=== PATIENT | male | born 1935 | race Caucasian/White ===

== ENCOUNTER 2018-10-27 10:29 | Emergency (ER) | payer MEDICARE, SELFPAY ==
[2018-10-27 10:32] VITALS: BP 163/79; PULSE 74; RESP 16; TEMP 36.6; O2SAT 98
--- NOTE | 2018-10-27 10:56 | DI.RAD_ITS ---
SYMPTOM/DIAGNOSIS: FALL LEFT WRIST: There is a comminuted interarticular fracture of the distal radius with mild displacement. There is minimal separation of the articular surface. There is evidence of an old ulnar styloid fracture. There is positive ulnar variance and degenerative changes between the ulna, lunate and triquetrum. No carpal fractures are seen. IMPRESSION: Comminuted interarticular fracture of the distal radius.
--- NOTE | 2018-10-27 10:56 | DI.RAD_ITS ---
SYMPTOM/DIAGNOSIS: FALL RIGHT KNEE: No fracture or hemarthrosis is seen. 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 IMPRESSION: Degenerative changes. No evidence of fracture.
--- NOTE | 2018-10-27 10:56 | DI.RAD_ITS ---
SYMPTOM/DIAGNOSIS: FALL LEFT FOREARM: Comparison is made with wrist films of the same day. Again noted is the distal radial fracture. No additional fractures are seen proximally in the radius or ulna. IMPRESSION: Distal radial fracture.
--- NOTE | 2018-10-27 10:56 | DI.CT_ITS ---
SYMPTOM/DIAGNOSIS: TRAUMA NONCONTRAST HEAD CT: There is a left frontal scalp soft tissue swelling. No skull fracture, intracranial hemorrhage seen. There is no evidence of mass or infarct. There is mild atrophy. The ventricles are normal in size. IMPRESSION: Left frontal scalp hematoma. No fracture or intracranial hemorrhage.
--- NOTE | 2018-10-27 11:10 | W.ED.GENAD ---
Discharge Plan Disposition Patient Disposition: HOME Condition: Stable Discharge Details Chief Complaint: Trauma Clinical Impression: Distal radius fracture, left, Hematoma of frontal scalp, Abrasion of scalp, Contusion of knee, right Primary Care Provider: [facility] ED Provider: Aldo Harper Discharge Instructions Instructions: Wrist Fracture in Adults (ED), Head Injury (ED), Contusion in Adults (ED), Hematoma (ED) Additional Instructions: You may continue to take [id number] pain medication as needed for discomfort. Also feel free to apply ice to reduce swelling. Ice can be applied on top of splinting and please do not remove splint until seen and evaluated by orthopedist. Due to possible navicular bone involvement to your fracture you should call your orthopedist first thing on Monday morning for arrangement of follow-up appointment and possible CT imaging as needed. Referrals: Primary Care Provider [Outside] (Follow-up with your primary care provider if you need a referral to local orthopedist when you return home) Medical Decision Making Patient presenting to the emergency department for chief complaint of trauma. Patient states just prior to coming to the emergency department he was helping his daughter load boxes into the vehicle when he was walking back to the house to get more boxes he tripped on a metal stake. This mechanical fall caused him to hit his head against the concrete, landed on his right knee, and also injured his left wrist due to attempting to brace for the fall. Patient states a mild headache but mostly is concerned about left wrist injury and states that that is the most painful area. Physical exam shows a hematoma and abrasion to the left forehead otherwise unremarkable neurological exam, significant pain and discomfort with palpation of the left distal radius and ulna with patient stating more pain to the radius. Patient has difficulty performing any range of motion of the wrist due to pain and discomfort. Distal to the site of injury patient has full sensation movement and cap refill along with radial pulse being intact. Patient has mild ecchymosis and abrasion to the right knee and pain to palpation of the patella otherwise unremarkable knee exam. Plan to perform radiological imaging of the head, left wrist and forearm, and right knee. Pending results patient only requesting acetaminophen for pain control Review of radiological imaging shows no acute findings on head and knee imaging but patient does have an acute comminuted intra-articular fracture of the distal radius. There is a slight lunacy noted and observed by radiologist on single view of the navicular but no obvious deformity or displacement. Given this patient was placed in a volar splint and Ortho-Glass along with Ash wrap was utilized to place the hand in resting position. Patient states that he would prefer to follow-up with his local orthopedist when he returns home for further treatment of his fracture. Did inform patient of the small lunacy seen through the navicular on single view and that he may need a CT imaging but I do not feel that this needs to be emergently performed in the emergency department. Patient and family state clear understanding of plan of care and need for follow-up with orthopedist for reevaluation. After discussion of diagnosis and plan of care patient and family have no further needs, questions, or concerns and states clear understanding to return to the emergency department for any worsening symptoms. HPI General Mode of arrival: ambulatory. Date/Time Provider Initiated Documentation: 10/27/18 10:35. Limitations to Documentation: no limitations. Information obtained by: patient, family and RN notes reviewed. History of Present Illness 82 year old M presents to the emergency department with the chief complaint of Fall with injury to head, left wrist, and right knee, described as moderate, with intensity rated at 10. and is localized to the head, right and upper extremity. Patient started experiencing this minute(s) (30) and it has been constant. Patient notes no other symptoms.. Patient did receive the following treatments prior to arrival, none Related Data Allergies Allergy/AdvReac Type Severity Reaction Status Date / Time No Known Allergies Allergy Unverified 10/27/18 10:36 General Stated Complaint: Trauma LAURA: 3 Review of Systems Constitutional Reports system reviewed and no additional complaints, except as docu and Denies headache(s) Eyes Reports system reviewed and no additional complaints, except as docu, Denies change in vision and Denies photophobia ENT Reports system reviewed and no additional complaints, except as docu, Denies abnormal hearing, Denies dental pain, Denies dizziness, Denies headache(s), Denies epistaxis, Denies nasal discharge and Denies neck pain Cardiovascular Reports system reviewed and no additional complaints, except as docu, Denies chest pain, Denies syncope and Denies palpitations Musculoskeletal Denies neck pain Integumentary/Breasts Reports bleeding lesions Neurologic Denies abnormal hearing, Denies dizziness, Denies syncope and Denies headache(s) Endocrine Denies palpitations PFS Social History Substance use type: does not use Do you feel safe at home: Yes Do you feel safe in your relationship?: Yes Exam Const General: cooperative, healthy appearing, comfortable and no acute distress [facility] Head: no palpable skull fracture, abrasion (with swelling ) left temporal 3 in, no Posada's sign, no lacerations, no raccoon eyes and No periorbital ecchymosis Ears: hearing grossly normal bilaterally General nose exam: external nose normal, no nasal discharge and no epistaxis Face and sinus: normal facial exam and face symmetric Mouth: oral mucosae normal, lip normal, tongue normal, oropharynx normal and moist mucous membranes Teeth and gingiva: dentition normal Throat: posterior oropharynx normal, tonsils normal and uvula midline Eyes General: appearance normal, both eyes and all related structures Pupils: PERRL EOM: EOM intact bilaterally Neck Neck: normal visual inspection, full ROM and no midline deformity Cardio Rate: regular rate Rhythm: regular rhythm Heart Sounds: S1 normal and S2 normal Pulses: radial pulses present Back/Spine/Pelvis Cervical Spine: normal cervical lordosis, cervical ROM normal, No cervical muscular tenderness, No pain with cervical ROM, No cervical spinal tenderness and No step off deformity Neuro General: alert, awake, gait normal, tone normal, moves all extremities and not confused Cranial Nerves: PERRL, EOM intact bilaterally, no nystagmus, tongue midline, hearing normal and able to elevate shoulders bilaterally Cognition: normal cognition Speech: speech normal Gait: normal gait Motor: muscle tone normal throughout Extrem Right upper extremity: wrist (and forearm ) Details: tenderness Location: of the distal radius, of the distal ulna and of the anatomic snuffbox, swelling (mild distal radial) and deformity Right lower extremity: normal capillary refill and knee Details: knee ligament exam normal, abrasion (with mild swelling) and ecchymosis (mild to patella) Left lower extremity: normal to inspection Other: + CMS to L fingers Course Vital Signs Temperature 36.6 C 10/27/18 10:32 Pulse 74 10/27/18 10:32 Respiratory Rate 16 10/27/18 10:32 Blood Pressure 163/79 H 10/27/18 10:32 Pulse Oximetry 98 10/27/18 10:32 Temperature 36.6 C 10/27/18 10:32 Temperature Source Temporal Artery Scan 10/27/18 10:32 Pulse 74 10/27/18 10:32 Respiratory Rate 16 10/27/18 10:32 Blood Pressure 163/79 H 10/27/18 10:32 Blood Pressure Position Sitting 10/27/18 10:32 Pulse Oximetry 98 10/27/18 10:32 Oxygen Delivery Method Room Air 10/27/18 10:32 Oxygen Flow Rate 0 10/27/18 10:32 Pain Level 10 10/27/18 10:32
--- NOTE | 2018-10-27 11:20 | ED.GENADUL_ITS ---
Discharge Plan Disposition Patient Disposition: HOME Condition: Stable Discharge Details Chief Complaint: Trauma Clinical Impression: Distal radius fracture, left, Hematoma of frontal scalp, Abrasion of scalp, Contusion of knee, right Primary Care Provider: [facility]Local ED Provider: Aldo Harper Discharge Instructions Instructions: Wrist Fracture in Adults (ED), Head Injury (ED), Contusion in Adults (ED), Hematoma (ED) Additional Instructions: You may continue to take [id number] pain medication as needed for discomfort. Also feel free to apply ice to reduce swelling. Ice can be applied on top of splinting and please do not remove splint until seen and evaluated by orthopedist. Due to possible navicular bone involvement to your fracture you should call your orthopedist first thing on Monday morning for arrangement of follow-up appointment and possible CT imaging as needed. Referrals: Primary Care Provider [Outside] (Follow-up with your primary care provider if you need a referral to local orthopedist when you return home) Medical Decision Making Patient presenting to the emergency department for chief complaint of trauma. Patient states just prior to coming to the emergency department he was helping his daughter load boxes into the vehicle when he was walking back to the house to get more boxes he tripped on a metal stake. This mechanical fall caused him to hit his head against the concrete, landed on his right knee, and also injured his left wrist due to attempting to brace for the fall. Patient states a mild headache but mostly is concerned about left wrist injury and states that that is the most painful area. Physical exam shows a hematoma and abrasion to the left forehead otherwise unremarkable neurological exam, significant pain and discomfort with palpation of the left distal radius and ulna with patient stating more pain to the radius. Patient has difficulty performing any range of motion of the wrist due to pain and discomfort. Distal to the site of injury patient has full sensation movement and cap refill along with radial pulse being intact. Patient has mild ecchymosis and abrasion to the right knee and pain to palpation of the patella otherwise unremarkable knee exam. Plan to perform radiological imaging of the head, left wrist and forearm, and right knee. Pending results patient only requesting acetaminophen for pain control Review of radiological imaging shows no acute findings on head and knee imaging but patient does have an acute comminuted intra-articular fracture of the distal radius. There is a slight lunacy noted and observed by radiologist on single view of the navicular but no obvious deformity or displacement. Given this patient was placed in a volar splint and Ortho-Glass along with Ash wrap was utilized to place the hand in resting position. Patient states that he would prefer to follow-up with his local orthopedist when he returns home for further treatment of his fracture. Did inform patient of the small lunacy seen through the navicular on single view and that he may need a CT imaging but I do not feel that this needs to be emergently performed in the emergency department. Patient and family state clear understanding of plan of care and need for follow-up with orthopedist for reevaluation. After discussion of diagnosis and plan of care patient and family have no further needs, questions, or concerns and states clear understanding to return to the emergency department for any worsening symptoms. HPI General Mode of arrival: ambulatory . Date/Time Provider Initiated Documentation: 10/27/18 10:35 . Limitations to Documentation: no limitations . Information obtained by: patient, family and RN notes reviewed . History of Present Illness 82 year old M presents to the emergency department with the chief complaint of Fall with injury to head, left wrist, and right knee, described as moderate, with intensity rated at 10. and is localized to the head, right and upper extremity. Patient started experiencing this minute(s) (30) and it has been constant. Patient notes no other symptoms.. Patient did receive the following treatments prior to arrival, none Related Data Allergies Allergy/AdvReac Type Severity Reaction Status Date / Time No Known Allergies Allergy Unverified 10/27/18 10:36 General Stated Complaint: Trauma LAURA: 3 Review of Systems Constitutional Reports system reviewed and no additional complaints, except as docu and Denies headache(s) Eyes Reports system reviewed and no additional complaints, except as docu, Denies change in vision and Denies photophobia ENT Reports system reviewed and no additional complaints, except as docu, Denies abnormal hearing, Denies dental pain, Denies dizziness, Denies headache(s), Denies epistaxis, Denies nasal discharge and Denies neck pain Cardiovascular Reports system reviewed and no additional complaints, except as docu, Denies chest pain, Denies syncope and Denies palpitations Musculoskeletal Denies neck pain Integumentary/Breasts Reports bleeding lesions Neurologic Denies abnormal hearing, Denies dizziness, Denies syncope and Denies headache(s) Endocrine Denies palpitations PFS Social History Substance use type: does not use Do you feel safe at home: Yes Do you feel safe in your relationship?: Yes Exam Const General: cooperative, healthy appearing, comfortable and no acute distress [facility] Head: no palpable skull fracture, abrasion (with swelling ) left temporal 3 in, no Posada's sign, no lacerations, no raccoon eyes and No periorbital ecchymosis Ears: hearing grossly normal bilaterally General nose exam: external nose normal, no nasal discharge and no epistaxis Face and sinus: normal facial exam and face symmetric Mouth: oral mucosae normal, lip normal, tongue normal, oropharynx normal and moist mucous membranes Teeth and gingiva: dentition normal Throat: posterior oropharynx normal, tonsils normal and uvula midline Eyes General: appearance normal, both eyes and all related structures Pupils: PERRL EOM: EOM intact bilaterally Neck Neck: normal visual inspection, full ROM and no midline deformity Cardio Rate: regular rate Rhythm: regular rhythm Heart Sounds: S1 normal and S2 normal Pulses: radial pulses present Back/Spine/Pelvis Cervical Spine: normal cervical lordosis, cervical ROM normal, No cervical muscular tenderness, No pain with cervical ROM, No cervical spinal tenderness and No step off deformity Neuro General: alert, awake, gait normal, tone normal, moves all extremities and not confused Cranial Nerves: PERRL, EOM intact bilaterally, no nystagmus, tongue midline, hearing normal and able to elevate shoulders bilaterally Cognition: normal cognition Speech: speech normal Gait: normal gait Motor: muscle tone normal throughout Extrem Right upper extremity: wrist (and forearm ) Details: tenderness Location: of the distal radius, of the distal ulna and of the anatomic snuffbox, swelling (mild distal radial) and deformity Right lower extremity: normal capillary refill and knee Details: knee ligament exam normal, abrasion (with mild swelling) and ecchymosis (mild to patella) Left lower extremity: normal to inspection Other: + CMS to L fingers Course Vital Signs Temperature 36.6 C 10/27/18 10:32 Pulse 74 10/27/18 10:32 Respiratory Rate 16 10/27/18 10:32 Blood Pressure 163/79 H 10/27/18 10:32 Pulse Oximetry 98 10/27/18 10:32 Temperature 36.6 C 10/27/18 10:32 Temperature Source Temporal Artery Scan 10/27/18 10:32 Pulse 74 10/27/18 10:32 Respiratory Rate 16 10/27/18 10:32 Blood Pressure 163/79 H 10/27/18 10:32 Blood Pressure Position Sitting 10/27/18 10:32 Pulse Oximetry 98 10/27/18 10:32 Oxygen Delivery Method Room Air 10/27/18 10:32 Oxygen Flow Rate 0 10/27/18 10:32 Pain Level 10 10/27/18 10:32
[2018-10-27] MEDS: Acetaminophen 325 MG TAB 650 MG PO (11:22)
--- NOTE | 2018-10-27 11:53 | DI.VRAD_ITS ---
EXAM: CT Head Without Contrast EXAM DATE/TIME: 10/27/2018 11:03 AM CLINICAL HISTORY: 82 years old, male; Injury or trauma; Fall; Initial encounter; Blunt trauma (contusions or hematomas); Injury date: 10/27/18 TECHNIQUE: Imaging protocol: Axial computed tomography images of the head without contrast. Coronal and sagittal reformatted images were created and reviewed. COMPARISON: No relevant prior studies available. FINDINGS: Brain: No acute post traumatic brain injury. Symmetric prominence of the cortical sulci. Prominent small vessel ischemic change. Ventricles: Normal configuration of the ventricles. Bones/joints: No acute calvarial injury. Sinuses: No sinus fluid. Mastoid air cells: No mastoid effusion. Soft tissues: Left frontal scalp hematoma. Vasculature: Vascular and dural calcification. IMPRESSION: 1. Left frontal scalp hematoma. 2. No acute post traumatic brain injury. Dictated and Authenticated by: Jesu Guzmán MD. Ordering:EDOUARD Carlson MD
--- NOTE | 2018-10-27 12:02 | DI.VRAD_ITS ---
EXAM: XR Left Wrist EXAM DATE/TIME: 10/27/2018 11:03 AM CLINICAL HISTORY: 82 years old, male; Patient HX: Left wrist pain after fall. TECHNIQUE: Imaging protocol: XR Left wrist. Views: 3 or more views. COMPARISON: No relevant prior studies available. FINDINGS: Bones/joints: Acute comminuted interarticular fracture involving the distal left radius. Old avulsion fracture of the ulnar styloid. Degenerative change, disproportionately involving the first carpometacarpal joint. Subtle contour irregularity and radiolucency about the navicular on a single oblique view, which can be better characterized with CT if clinically indicated. Soft tissues: Soft tissue swelling. IMPRESSION: 1. Acute comminuted interarticular fracture involving the distal left radius. 2. Additional findings as described above. Dictated and Authenticated by: Jesu Guzmán MD. Ordering:EDOUARD Carlson MD
--- NOTE | 2018-10-27 12:03 | DI.VRAD_ITS ---
EXAM: XR Left Knee EXAM DATE/TIME: 10/27/2018 11:05 AM CLINICAL HISTORY: 82 years old, male; Patient HX: Right knee pain after fall. TECHNIQUE: Imaging protocol: XR Left knee. Views: 4 or more views. COMPARISON: No relevant prior studies available. FINDINGS: Bones/joints: No acute bony injury or malalignment. Degenerative change and joint effusion. Soft tissues: Anterior soft tissue swelling. Other: Vascular calcification. IMPRESSION: No acute bony injury or malalignment. Dictated and Authenticated by: Jesu Guzmán MD. Ordering:EDOUARD Carlson MD
--- NOTE | 2018-10-27 12:04 | DI.VRAD_ITS ---
EXAM: XR Left Forearm EXAM DATE/TIME: 10/27/2018 11:03 AM CLINICAL HISTORY: 82 years old, male; Patient HX: Left wrist and distal forearm pain since fall. ; Additional info: Best images obtained due to patient condition. TECHNIQUE: Imaging protocol: XR Left forearm. Views: 2 views. COMPARISON: No relevant prior studies available. FINDINGS: Bones/joints: Acute comminuted intra-articular fracture of the distal left radius. Old avulsion fracture of the older styloid. Soft tissues: Mild soft tissue swelling. IMPRESSION: Acute comminuted intra-articular fracture of the distal left radius. Dictated and Authenticated by: Jesu Guzmán MD. Ordering:EDOUARD Carlson MD
[2018-10-27 12:54] VITALS: BP 132/84; PULSE 82; RESP 16; TEMP 36.7
== END 2018-10-27 12:49 | disposition home or self-care (01) ==
LOC: ER 12:48
PROVIDERS: Emergency Provider Nurse Practitioner Family
DX: S52.572A Other intraarticular fracture of lower end of left radius, initial encounter for closed fracture (principal); S00.03XA Contusion of scalp, initial encounter; S80.01XA Contusion of right knee, initial encounter; W01.0XXA Fall on same level from slipping, tripping and stumbling without subsequent striking against object, initial encounter
CPT/HCPCS: 25600; 99284; 70450; 73090; 73110; 73564; 99282